=== PATIENT | male | born 1975 | race Two or more races ===

== ENCOUNTER 2023-10-07 18:17 | Emergency (ER) | payer SELFPAY ==
[~2023-10-07] VITALS: Ht 177.8 cm; Wt 75.0 kg
[2023-10-07 18:24] VITALS: BP 146/105; PULSE 89; RESP 16; O2SAT 98
[2023-10-07] MEDS: TETANUS, DIPHTHERIA, PERTUSSIS VAC/PF 0.5ML (>10YR OLD) IM ONE (20:34)
[2023-10-07 20:40] VITALS: TEMP 98
[2023-10-07] MEDS: ACETAMINOPHEN 325MG TABLET PO ONE (20:40)
[2023-10-07 21:15] LABS: BASOPHILS % 0.5 % (0.0-2.0); EOSINOPHILS % 0.8 % (0.0-5.0); HEMATOCRIT. 46.5 % (42.0-52.0); LYMPHOCYTES % 29.8 % (20.0-50.0); MEAN CORPUSCULAR HEMOGLOBIN 27.1 pg (28.0-32.0); MEAN CORPUSCULAR HGB CONC 32.3 g/dL (31.0-37.0); MEAN CORPUSCULAR VOLUME 83.9 fL (80.0-94.0); MEAN PLATELET VOLUME 8.3 fl (7.4-10.4); MONOCYTES % 9.1 % (2.0-8.0); NEUTROPHILS % 59.8 % (40.0-76.0); PLATELET 188 x1000/uL (130-400); RED BLOOD CELL COUNT 5.55 mill/uL (4.7-6.1); RED CELL DISTRIBUTION WIDTH 13.7 % (11.6-14.6); WHITE BLOOD COUNT 7.1 x1000/uL (4.5-11.0)
[2023-10-07 21:28] LABS: CHLORIDE 103 mEq/L (98-107); POTASSIUM 4.5 mEq/L (3.5-5.1); SODIUM 139 mEq/L (136-145)
[2023-10-07 21:29] LABS: CALCIUM 9.8 mg/dL (8.7-10.4); CARBON DIOXIDE 31 mEq/L (21-32)
[2023-10-07 21:34] LABS: CREATININE 1.1 mg/dL (0.6-1.3); GLUCOSE 98 mg/dL (70-105); UREA NITROGEN BLOOD 12 mg/dL (9-23)
[2023-10-07 21:35] LABS: ALANINE AMINOTRANSFERASE 9 IU/L (10-49)
[2023-10-07 21:36] LABS: ALBUMIN 4.2 g/dL (3.2-4.8); ASPARTATE AMINOTRANSFERASE 21 IU/L (<34); BILIRUBIN TOTAL 1.1 mg/dL (0.1-1.0); PROTEIN TOTAL 7.3 g/dL (6.0-8.3)
[2023-10-07] MEDS ORDERED: IBUP-2029 MT (22:26)
[2023-10-07] MEDS ORDERED: METH-653 MT (22:26)
[2023-10-07] MEDS ORDERED: IOHEXOL-300 100 ML BOTTLE ONE (23:10)
== END 2023-10-08 01:18 | disposition home or self-care (01) ==
LOC: ER 18:17
DX: S09.8XXA Other specified injuries of head, initial encounter (principal); S80.811A Abrasion, right lower leg, initial encounter; M54.2 Cervicalgia; R07.9 Chest pain, unspecified; R10.9 Unspecified abdominal pain; V98.8XXA Other specified transport accidents, initial encounter; Y93.89 Activity, other specified; Y92.89 Other specified places as the place of occurrence of the external cause; Y99.8 Other external cause status
CPT/HCPCS: 99291; 70450; 80053; 85025; 36415; 71045; 73130; 73590; 71260; 72125; 74177; Q9967